=== PATIENT | male | born 1950 | race Caucasian/White ===

== ENCOUNTER 2022-03-11 10:00 | Emergency (ER) | payer MEDICARE, MEDICAID ==
[~2022-03-11] VITALS: Ht 170.2 cm; Wt 82.7 kg
[2022-03-11 11:00] LABS: CLARITY,URINE CLOUDY (Clear); COLOR,URINE YELLOW (Yellow); GLUCOSE, URINE NEGATIVE (Neg); KETONES,URINE NEGATIVE (Neg); LEUKOCYTE ESTERASE ,URINE MODERATE (Neg); NITRITES, URINE NEGATIVE (Neg); OCCULT BLOOD,URINE LARGE (Neg); PH,URINE 6.5 (4.8-8.0); PROTEIN,URINE NEGATIVE (Neg); UROBILINOGEN,URINE 0.2 E.U/dL (0.2-1.0)
[2022-03-11 12:20] LABS: UA COLLECTION TYPE NON-SPECIFIED
[2022-03-11 12:21] LABS: RBC,URINE 50-100 /HPF (0-2)
[2022-03-11 12:22] LABS: BACTERIA,URINE FEW /HPF (Neg); SQUAMOUS EPITHELIAL CELL,UR FEW /LPF (FEW); TRANSITIONAL EPI CELLS,URINE FEW /HPF
[2022-03-11] MEDS ORDERED: ciprofloxacin 250mg tablet PO ONE (13:00)
[2022-03-11] MEDS ORDERED: CIPR-260 PO (13:11)
[2022-03-11 13:45] VITALS: BP 117/76
--- NOTE | 2022-03-11 13:50 | NUR ---
Pt given and understands d/c instructions. Ambulatory with a steady gait.
== END 2022-03-11 13:50 | disposition home or self-care (01) ==
LOC: ER 10:01
DX: N30.91 Cystitis, unspecified with hematuria (principal); N40.0 Benign prostatic hyperplasia without lower urinary tract symptoms; E11.9 Type 2 diabetes mellitus without complications; Z87.891 Personal history of nicotine dependence
CPT/HCPCS: 81001; 87088; 99283

== ENCOUNTER 2025-04-28 08:36 | Emergency (ER) | payer MEDICARE, MEDICAID ==
[~2025-04-28] VITALS: Ht 170.2 cm; Wt 72.1 kg
[~2025-04-28 08:36] MED LIST: CIPR-260 PO; PRED20TA PO
[2025-04-28 08:43] VITALS: BP 107/64; PULSE 50; TEMP 98.8; O2SAT 100
[2025-04-28 08:49] VITALS: RESP 16
--- NOTE | 2025-04-28 09:11 | Physician Documentation ---
History of Present Illness ~ Chief Complaint: Groin Pain Stated Complaint: HERNIA Time Seen by MD: 09:02 Mode of Arrival: POV HPI Patient is seen today with complaints of burning pain and a mass in his left groin that started a few days ago while he was on a walk. Patient states the mass does reduce when he lays flat. Patient states the mass is tender while in his protruding. Patient denies any nausea, vomiting, diarrhea, fevers, chills, chest pain, shortness of breath or abdominal pain. Patient has no other concern or complaint at this time. He denies any history of hernia or inguinal hernia. Medication Reconciliation Allergies: Coded Allergies: No Known Allergies (Unverified , 03/11/22) Scheduled Ciprofloxacin HCl (Cipro), 1 TAB PO Q12H Discontinued Medications Prednisone* (Prednisone*), 1 TAB PO Q12H Discontinued Reason: Auto Discontinued Past Medical History Past Medical History: BPH, Diabetes Past Surgical History: no surgical history Drug Use: none Lives In: Home Review of Systems Constitutional: Denies: chills, fever, weakness Eyes: Denies: pain, blurred vision ENT: Denies: ear pain, nose pain, throat pain, mouth pain Respiratory: Denies: cough, shortness of breath Cardiovascular: Denies: chest pain, palpitations Gastrointestinal: Denies: abdominal pain, nausea, vomiting Genitourinary: Denies: burning, dysuria Male Genitalia: Denies: penile discharge, testicular pain Neurological: Denies: headache, dizziness Musculoskeletal: Denies: pain, swelling Integumentary: Denies: rash, lesions Allergic/Immunologic: Denies: hives, itching Hematologic/Lymphatic: Denies: no symptoms reported Psychiatric: Denies: depression, anxiety Physical Exam Vital Signs: Temperature: 98.8, Source: Oral, Heart Rate: 50, Respiratory Rate: 16, BP: 107/64, Pulse Oximetry: 100, Weight: 72.100 Oxygen Flow Rate: 0 Physical Exam General: Awake and Alert, no acute distress. HEENT: Conjunctiva pink, Sclera clear, Mucus Membranes moist. Neck: Supple without masses and tenderness. Resp: Unlabored. Lungs clear to auscultation bilaterally. Heart: Regular Rate and rhythm, normal S1 and S2 without murmur, rub or gallop. Groin/: Patient on exam does have reducible left-sided inguinal hernia. The area is tender to palpation but reduces readily. Abdomen: Soft and non tender no organomegaly. Extremities: No cyanosis,clubbing or edema. Skin: Warm and Dry. Progress Results/Orders Results/Orders Vital Signs 04/28/25 04/28/25 08:43 08:49 Temp 98.8 Pulse 50 Resp 16 16 B/P (MAP) 107/64 Pulse Ox 100 O2 Flow Rate 0 Medical Decision Making Findings Patient is seen today with complaints of burning pain and a mass in his left groin that started a few days ago while he was on a walk. Patient states the mass does reduce when he lays flat. Patient states the mass is tender while in his protruding. Patient denies any nausea, vomiting, diarrhea, fevers, chills, chest pain, shortness of breath or abdominal pain. Patient has no other concern or complaint at this time. He denies any history of hernia or inguinal hernia. Shared decision-making utilized with the patient today. Patient did agree to follow up with primary care and get a referral to a general surgeon for further eval and treatment of his reducible left-sided inguinal hernia. Patient will return to ED with any worsening, concerning or changing symptoms or fever or chills or abdominal pain. Departure Disposition: 01 HOME / SELF CARE / HOMELESS Impression: Primary Impression: Left inguinal hernia Condition: Stable Discharge Instructions: Hernia Additional Instructions: Shared decision-making utilized with the patient today. Patient did agree to follow up with primary care and get a referral to a general surgeon for further eval and treatment of his reducible left-sided inguinal hernia. Patient will return to ED with any worsening, concerning or changing symptoms or fever or chills or abdominal pain. Referrals: NO PRIMARY CARE PROVIDER (PCP) Signature Scribe Signature: No scribe Attestation: No scribe FREDY CORREA April 28, 2025 09:11
== END 2025-04-28 09:40 | disposition home or self-care (01) ==
LOC: ER 08:37
DX: K40.90 Unilateral inguinal hernia, without obstruction or gangrene, not specified as recurrent (principal); E11.9 Type 2 diabetes mellitus without complications
CPT/HCPCS: 99281

== ENCOUNTER 2025-09-01 09:58 | Emergency (ER) | payer MEDICARE, MEDICAID ==
[~2025-09-01] VITALS: Ht 167.6 cm; Wt 76.4 kg
[~2025-09-01 09:58] MED LIST changes: +ASPI81TA53 PO; -CIPR-260 PO; +HYDR-3972 PO; +LEVO137T2 PO; +LOP12.5T PO; -PRED20TA PO; +TRAM50TA2 PO
[2025-09-01 10:03] VITALS: TEMP 97.6
--- NOTE | 2025-09-01 10:36 | Physician Documentation ---
History of Present Illness ~ Chief Complaint: Blurred Vision Stated Complaint: BLURRY VISION X2 NIGHTS AGO Time Seen by MD: 11:32 Primary Medical Doctor: ping MCDANIEL Is a 75-year-old male that presents to the emergency department for evaluation of blurred vision and abnormal eye movement x2 days ago. Reports that the event lasted for approximately 2 minutes and resolved completely. Patient denies any symptoms at this time. Patient reports family told him that he should have presented 2 days ago and now today is coming in for evaluation due to his concern of having had a TIA. Patient has a history of recent valve replacement and does not take any blood thinners at this time. Denies any other symptoms at this time. Medication Reconciliation Allergies: Coded Allergies: No Known Allergies (Unverified , 09/01/25) Scheduled Aspirin (Children's Aspirin), 81 MG PO Q24H@0830 Levothyroxine Sodium (Levothyroxine Sodium), 1 TAB PO QAM, (Reported) Metoprolol Tartrate (Lopressor tablet), 12.5 MG PO BID Scheduled PRN Hydrocodone Bit/Acetaminophen (Hydrocodon-Acetaminophn 10-325 tablet), 1 TAB PO Q6H PRN for MODERATE PAIN 4-6 Tramadol Hcl (Tramadol Hcl), 1 TAB PO DAILY PRN for pain, (Reported) Past Medical History Past Medical History: BPH, Diabetes Past Surgical History: no surgical history Patient History: Oxygen Dependent Smoking Drug Use: none Lives In: Home Review of Systems ROS As mentioned in [place]. Physical Exam Vital Signs: Temperature: 97.6, Source: Temporal, Heart Rate: 51, Respiratory Rate: 16, BP: 109/62, Pulse Oximetry: 99, Weight: 76.400 Oxygen Flow Rate: 0 Physical Exam Reviewed vital signs and they are all well within normal limit . Patient told me that his base line BP is low normal. general appearance : not in any distress. Head : atraumatic HEENT : NAD normal symmetry of the face NECK : supple Respiratory : unlabored breathing and CTA CVS : S1 S2 and regular Abdomen : nontender Neurology : , negative for BFAST no focal neurological deficit. Progress Results/Orders Results/Orders Orders - NANCY SIN MD Electrocardiogram (09/01/25 11:32) Lolita Prov.Neuro Consult (09/01/25 11:32) Cta Neck/Head (09/01/25 11:32) Ct Head (09/01/25 ) Completed Orders - OHNANCY Marcus MD Electrocardiogram (09/01/25 11:32) Cbc/Diff (09/01/25 11:32) BMP (09/01/25 11:32) Pt Inr (09/01/25 11:32) PTT (09/01/25 11:32) Liver Panel (09/01/25 11:32) Cta Neck/Head (09/01/25 11:32) Ct Head (09/01/25 ) Iohexol 350mg/Ml 100ml (Omnipaque 350mg/ (09/01/25 12:23) Normal Saline 1000ml (0.9% Sodium Chlori (09/01/25 12:30) Aspirin 81mg, Enteric-Coated (Ecotrin Ta (09/01/25 13:55) Laboratory Tests Test 09/01/25 11:48 White Blood Count 4.4 L Red Blood Count 4.57 L Hemoglobin 12.1 L Hematocrit 36.6 L Mean Corpuscular Volume 79.9 Mean Corpuscular Hemoglobin 26.5 L Mean Corpuscular Hemoglobin Concent 33.2 Red Cell Distribution Width 17.3 H Platelet Count 237 Mean Platelet Volume 7.7 Neutrophils (%) (Auto) 62.8 Lymphocytes (%) (Auto) 21.4 Monocytes (%) (Auto) 12.1 H Eosinophils (%) (Auto) 1.5 Basophils (%) (Auto) 2.2 H Neutrophils # (Auto) 2.8 Lymphocytes # (Auto) 0.9 L Monocytes # (Auto) 0.5 Eosinophils # (Auto) 0.1 Basophils # (Auto) 0.1 CBC Comment Prothrombin Time 11.7 INR International Normalized Ratio 1.2 Activated Partial Thromboplast Time 29 Coagulation Comments Sodium Level 142 Potassium Level 4.0 Chloride Level 105 Carbon Dioxide Level 29.6 Anion Gap 7 L Blood Urea Nitrogen 18 Creatinine 0.90 Estimated GFR/1.73 m2 83 BUN/Creatinine Ratio 20.0 Glucose Level 95 Calcium Level 8.9 Total Bilirubin 0.3 Direct Bilirubin 0.1 Aspartate Amino Transf (AST/SGOT) 20 Alanine Aminotransferase (ALT/SGPT) 20 Alkaline Phosphatase 72 Total Protein 7.2 Albumin 3.8 Globulin 3.4 Albumin/Globulin Ratio 1.1 Chemistry Comments Medical Decision Making Findings The patient odes not have any neurological deficit. he has no arrhythmia . The [facility] teleneurology consult was done and I have spoken with the neurologist and we will put him on a baby aspirin for the time being and patient will have further stroke work up including MRI shall be done as as out patient. patient is discharged with clear instructions for follow up and return. Departure Disposition: 01 HOME / SELF CARE / HOMELESS Impression: Primary Impression: TIA (transient ischemic attack) Condition: Stable Discharge Instructions: Blurred Vision, Adult Additional Instructions: Thank you for coming to our Emergency Department today. Please do outpatient MRI of the brain with your physician. Please take one coated baby aspirin a day. Please ask your nurse or provider if you have questions about your care today and do not leave until all your questions have been answered. Please use any medications given as directed and follow-up with your doctor (or the doctor you were referred to) in the next 1-3 days. Your primary care doctor can help to coordinate outpatient specialty care and provide authorization for specialty referral as needed. If you do not have a primary care doctor you may follow up at a [facility] facility. You may also use motrin and tylenol as needed for fever and/or pain unless instructed otherwise by your provider or nurse. Indications for more urgent follow-up have been discussed, but you may return to the Emergency Department at ANY time for any worrisome or worsening symptoms. [facility] Facilities: [facility] Facilities: [facility]: [facility] [place] Address:[address] [place] [address] [facility]: [place] Address:[address] [place] [id number] [facility]: [facility] Address:[address] [place] [address] [facility] Address:[address] [place] [address] Registration Billing Pharmacy Referrals [facility] Address:[address] [place] [address] Referrals: NO PRIMARY CARE PROVIDER (PCP) Education Educated: Patient Educated regarding: diagnosis, treatment, need for follow up Signature Scribe Signature: x Attestation: ROGER Aguilar Sep 01, 2025 10:36 NANCY SIN MD Sep 01, 2025 13:55
[2025-09-01 12:00] LABS: MEAN PLATELET VOLUME 7.7 FL (7.4-10.4); RED CELL DISTRIBUTION WIDTH 17.3 % (11.5-14.5)
--- NOTE | 2025-09-01 12:06 | ELECTROCARDIOGRAPH REPORT ---
[facility] Test Date: 2025-09-01 Test Time: 12:03:46 Pat Name: MARIANA SANCHEZ Department: [facility] Patient ID: [id number] Room: Gender: M Sewer Head: : 1950 Requested By: NANCY SIN Order Number: [id number] Reading MD: Dr. Ronny Cardoza Measurements Intervals [place] Rate: 44 P: 64 UT: 261 QRS: 67 QRSD: 95 T: 64 QT: 447 QTc: 383 Interpretive Statements Sinus bradycardia Prolonged UT interval Electronically Signed On 09-01-2025 21:39:[address] Ronny Cardoza Please click the below link to view image of tracing.
[2025-09-01 12:09] LABS: APTT 29 SECONDS (22-32); CREATININE 0.90 MG/DL (0.60-1.10); INR 1.2 INR; TOTAL CARBON DIOXIDE 29.6 MMOL/L (24-32); eCRCL 66 ML/MIN; eGFR 83 ML/MIN
[2025-09-01] MEDS: normal saline 1000ml 1,000 ML IV ONE (12:49)
--- NOTE | 2025-09-01 12:55 | RADIOLOGY REPORT ---
CT CT HEAD INDICATION: Blurred vision two nights ago COMPARISON: CT CTA NECK/HEAD on DOS: 09/01/25, CT CT FACIAL BONES/SOFT TISSUE on DOS: 05/10/25, CT CT CERVICAL SPINE on DOS: 05/10/25, CT CT HEAD on DOS: 05/10/25 TECHNIQUE: CT of the head without intravenous contrast. RADIATION DOSE: CTDIvol: 64 mGy, DLP: 1140 mGy*cm FINDINGS: There is no evidence of acute intracranial hemorrhage, extra-axial collection, mass effect, midline shift, herniation or hydrocephalus. The ventricles, sulci and cisterns are age appropriate. The noble-white differentiation is intact. The visualized paranasal sinuses and mastoid air cells are clear. The surrounding soft tissues and osseous structures are unremarkable. IMPRESSION: 1. No evidence of acute intracranial hemorrhage, mass effect or hydrocephalus.
--- NOTE | 2025-09-01 13:36 | RADIOLOGY REPORT ---
Procedure: CT CTA NECK/HEAD HISTORY: Blurred vision two nights ago Comparison Study: CT CT HEAD on DOS: 09/01/25, VASC VL CAROTID on DOS: 05/10/25, CT CT FACIAL BONES/SOFT TISSUE on DOS: 05/10/25, CT CT CERVICAL SPINE on DOS: 05/10/25, CT CT HEAD on DOS: 05/10/25 Exam Date:09/01/2025 12:35 PM TECHNIQUE: CTA head without and with intravenous contrast. CTA neck with intravenous contrast. 3D image postprocessing was performed and images were used for interpretation and reporting. Radiation Dose : CT Dose: CTDI volume is 25 mGy. Dose-length product is 250 mGy*cm FINDINGS: CTA head: There is normal enhancement of the visualized distal internal carotid, anterior and middle cerebral arteries. There is a normal anterior communicating artery complex. There are bilateral posterior communicating arteries. The vertebral, basilar, cerebellar and posterior cerebral arteries are within normal limits. The early parenchymal enhancement is grossly unremarkable. The visualized intracranial venous structures are grossly unremarkable. CTA neck: The visualized thoracic aortic arch and proximal great vessels are unremarkable. The left common, internal and external carotid arteries are within normal limits. The right common, internal and external carotid arteries are within normal limits. The cervical segments of the right and left vertebral arteries are within normal limits. The limited visualized lung apices are clear. The surrounding soft tissues and osseous structures are otherwise unremarkable. IMPRESSION: No evidence of hemodynamically significant intracranial stenosis, proximal occlusion or aneurysm. No evidence of hemodynamically significant cervical stenosis or dissection. CAROTID STENOSIS REFERENCE Distal internal carotid artery diameter as the denominator for stenosis measurement: MILD = <50% stenosis. MODERATE = 50-69% stenosis. SEVERE = 70-89% stenosis. CRITICAL = 90-99% stenosis. OCCLUDED = 100% stenosis. All CT scans at this medical facility are performed using dose modulation techniques as appropriate to a performed exam including the following: Automated exposure control was utilized; adjustment of the MA and/or KV according to patient size; and use of iterative reconstruction technique.
[2025-09-01] MEDS: aspirin 81mg, enteric-coated 1 TAB TABLET.DR PO ONE (14:25)
[2025-09-01 14:27] VITALS: BP 121/67; PULSE 50; RESP 16; O2SAT 99
--- NOTE | 2025-09-01 15:26 | CONSULTATION REPORT ---
History of Present Illness Providers to CC ~ Refering MD: ping Allergies: Coded Allergies: No Known Allergies (Unverified , 09/01/25) Home Medications Home Medications Active Hydrocodon-Acetaminophn 10-325 tablet (Acetaminophen/Hydrocodone Bitart) 10mg- 325mg Tablet 1 Tab PO Q6H PRN Children's Aspirin (Aspirin) 81 Mg Tab.chew 81 Mg PO Q24H@0830 Lopressor tablet (Metoprolol Tartrate) 25 Mg Tablet 12.5 Mg PO BID Hold for Heart Rate below 60. Reported Tramadol Hcl (Tramadol HCl) 50 Mg Tablet 1 Tab PO DAILY PRN Levothyroxine Sodium 137 Mcg Tablet 1 Tab PO QAM Past Family History Family History: Oxygen Dependent Smoking Physical Exam Last Vital Signs Recorded: Temperature: 97.6, Source: Temporal, Heart Rate: 50, Respiratory Rate: 16, BP: 121/67, Pulse Oximetry: 99, Weight: 76.400 Results Diagram Lab Result Diagram: 09/01/25 1148 09/01/25 1148 Assessment/Plan Additional Plan [facility] # Demographics Consult Type: Acute Stroke Level 2 (4.5-24 hrs) Patient Location: Emergency Room First Name: Александр Last Name: Abel Date of : 1950 Age: 75 Gender: Male Facility: [facility] Time of Initial Page (): 09/01/2025 11:43 First Contact with Site (): 09/01/2025 11:44 # HPI Chief Complaint: - vision changes History: 75 y/o M presents with question of TIA two nights ago. Was watching television when his head felt funny, he got double vision, then started feeling normal again after two minutes. Double vision did not change with closure of either eye. No prior similar symptoms. No provoking factor. No thinners recently. Sister told him he might have had a TIA and to come to the ER. # Scores Time of exam and NIHSS (): 09/01/2025 11:53 Level of Consciousness 1a: [0] = Alert; keenly responsive LOC Questions 1b: [0] = Answers both questions correctly LOC Commands 1c: [0] = Performs both tasks correctly Best Gaze 2: [0] = Normal Visual 3: [0] = No visual loss Facial Palsy 4: [0] = Normal symmetrical movements Motor Arm Left 5a: [0] = No drift Motor Arm Right 5b: [0] = No drift Motor Leg Left 6a: [0] = No drift Motor Leg Right 6b: [0] = No drift Limb Ataxia 7: [0] = Absent Sensory 8: [0] = Normal Best Language 9: [0] = No aphasia Dysarthria 10: [0] = Normal Extinction and Inattention 11: [0] = No abnormality NIHSS Total: 0 # Assessment Impression: - Other Possible TIA, though mimics also possible # Plan Thrombolytic/Intervention: NOT IV Thrombolysis or IA Intervention candidate Thrombolytic Exclusion (< 3 hour window): - non-disabling deficit Intraarterial Exclusion: - clinical exam not consistent with presence of large vessel occlusion (LVO), can reconsider if LVO found on vascular imaging Other: - If patient has any neurological deterioration please call me back immediately - I have discussed my recommendations with the referring provider Additional Recommendations: If CT/CTA negative then okay for outpatient follow-up for ECHO, MRI, fasting lipids. would start Aspirin 81mg daily. Please call if concerning changes on CT studies. # Logistics Attestation of consult completion: The patient is located at: [facility]. Facility staff participated in the visit. I performed this telemedicine visit from my offsite office utilizing interactive 2 way audio and visual telecommunication technology at the request of the onsite emergency room provider. Total time spent in telemedicine encounter: I spent 15 minutes reviewing clinical data and/or imaging, obtaining history, examining the patient, communicating with the onsite care team, and in preparation of this report. # Demographics First Name: Александр Last Name: Roman Facility: [facility] NICK ROBLES MD Sep 01, 2025 15:26
== END 2025-09-01 14:31 | disposition home or self-care (01) ==
LOC: ER 09:59
DX: G45.9 Transient cerebral ischemic attack, unspecified (principal); F17.200 Nicotine dependence, unspecified, uncomplicated; E11.9 Type 2 diabetes mellitus without complications; Z79.899 Other long term (current) drug therapy; Z79.82 Long term (current) use of aspirin
CPT/HCPCS: 70450; 70496; 70498; 80048; 80076; 85025; 85610; 85730; 93005; 96360; 96361; 99285; J7030; Q9967

== ENCOUNTER 2025-11-03 11:59 | Day surgery (SDC) | payer MEDICARE, MEDICAID ==
[2025-10-25 11:38] LABS: MEAN PLATELET VOLUME 7.3 FL (7.4-10.4); PRE OP HEMATOCRIT 37.8 % (42.0-52.0); PRE OP HEMOGLOBIN 12.6 g/dL (14.0-17.9); PRE OP PLATELET COUNT 220 X10'3 (140-440); PRE OP WHITE BLOOD COUNT 4.7 10'3 (4.8-10.8); RED CELL DISTRIBUTION WIDTH 17.2 % (11.5-14.5)
[2025-10-25 11:53] LABS: CREATININE 0.90 MG/DL (0.60-1.10); PRE OP ALT 21 U/L (30-65); PRE OP ANION GAP 6 (8-16); PRE OP AST 25 U/L (10-37); PRE OP BILIRUB, TOTAL 0.4 MG/DL (0.0-1.0); PRE OP GLUCOSE 113 MG/DL (70-104); PRE OP POTASSIUM 4.1 MMOL/L (3.4-5.1); PRE OP SODIUM 142 MMOL/L (135-145); TOTAL CARBON DIOXIDE 30.2 MMOL/L (24-32); eGFR 83 ML/MIN
[2025-11-03] VITALS (11 sets, daily range): BP systolic 117–141; BP diastolic 66–89; PULSE 54–86; RESP 12–20; TEMP 97.5; O2SAT 95–99
[~2025-11-03] VITALS: Ht 167.6 cm; Wt 76.4 kg
[2025-11-03] MEDS: ceFAZolin 2gm/dext,iso 50mL 50 ML IV ONE (05:30)
[~2025-11-03 11:59] MED LIST changes: +ASPI-1265 PO; -ASPI81TA53 PO; -HYDR-3972 PO; -LOP12.5T PO; -TRAM50TA2 PO
[2025-11-03] MEDS ORDERED: hydrALAZINE 20mg/ml inj. IV PRN (13:00)
[2025-11-03] MEDS ORDERED: ondansetron/PF 4mg/2ml inj IV PRN (13:00)
[2025-11-03] MEDS ORDERED: labetalol 20mg/4ml (5mg/ml) syringe IV PRN (13:00)
[2025-11-03] MEDS ORDERED: HYDROmorphone/PF 0.2 MG/ML SYRINGE IV PRN (13:00)
[2025-11-03] MEDS ORDERED: fentaNYL/PF 50MCG/1 ML 2ML syringe IV PRN (13:00)
[2025-11-03] MEDS ORDERED: ringers solution, lacted 1,000 ML IV SCH (13:00)
[2025-11-03] MEDS: ringers solution, lacted 1,000 ML IV SCH (13:02)
--- NOTE | 2025-11-03 14:07 | HISTORY AND PHYSICAL ---
History & Physical Providers to CC CC: BERRY RODNEY MD ~ History of Present Illness Reason for Admit\Complaint: Left inguinal hernia, umbilical hernia History of Present Illness Interval history and physical exam Patient here today for elective repair of his umbilical and left inguinal hernias He is also concerned about a possible right inguinal hernia He denies any change in his past medical history since he was seen in the office (please see previous history and physical exam for all pertinent details) He is scheduled for robotic assisted, laparoscopic mesh repair of the inguinal hernia and open repair of his umbilical hernia Allergies: Coded Allergies: No Known Allergies (Unverified , 09/01/25) Home Medications Home Medications Active Reported Aspirin 81 Mg Tab.chew 1 Tab PO DAILY Levothyroxine Sodium 137 Mcg Tablet 1 Tab PO QAM Family History Family History: Oxygen Dependent Smoking ROS ROS Reviewed and negative with the exception of symptomatic left and burning, suspected symptomatic right inguinal hernia Exam General: 75-year-old male in no acute distress Chest: Lungs clear to auscultation bilaterally Cardiovascular: Regular rate and rhythm without murmurs Abdomen: Soft and nondistended Reducible 1-2 cm umbilical hernia Left side of the abdomen marked with indelible ink correlating with planned left inguinal hernia repair Suspected right inguinal hernia with the associated right groin cough impulse Problems: (1) Umbilical hernia (2) Left inguinal hernia Status: Acute Additional Plan The risks, benefits, and alternatives to umbilical hernia repair as well as robotic assisted, laparoscopic left possible right inguinal hernia repair with mesh were discussed with the patient. Risks include, but are not limited to, bleeding, infection, injury to intra-abdominal structures, hernia recurrence and chronic postoperative pain. Patient verbalized understanding and wishes to proceed with surgery. We will do so today as scheduled. BERRY RODNEY MD Nov 03, 2025 14:07
[2025-11-03] MEDS ORDERED: BUPIVAcaine 2.5mg/ml inj 50ml vial (contains preservative) ONE (14:08)
[2025-11-03] MEDS ORDERED: LIDOcaine 1% 30ml preserv. free vial ONE (14:08)
[2025-11-03] MEDS ORDERED: BUPIVACAINE liposomal/PF 13.3 MG/ML 10mL vial IM ONE (14:09)
[2025-11-03] MEDS ORDERED: midazolam 1 mg/ML 2ml injection ONE (14:22)
[2025-11-03] MEDS ORDERED: fentaNYL/PF 50MCG/1 ML 2ML syringe ONE (14:22)
[2025-11-03] MEDS ORDERED: propofol inj 20 ML IV ONE (14:27)
[2025-11-03] MEDS ORDERED: glycopyrrolate 0.2mg/ml inj ONE (14:28)
[2025-11-03] MEDS ORDERED: rocuronium 10mg/ml inj IV ONE ×2 (14:28→14:45)
[2025-11-03] MEDS ORDERED: LIDOcaine 1%/PF 5ML 10 MG/ML VIAL ONE (14:28)
[2025-11-03] MEDS ORDERED: ondansetron/PF 4mg/2ml inj ONE (14:28)
[2025-11-03] MEDS ORDERED: dexamethasone sod phosphate 4mg/ml inj. ONE (14:35)
[2025-11-03] MEDS ORDERED: HYDROcodone/acetaminophen 5mg/325mg tablet PO PRN (16:20)
[2025-11-03] MEDS: fentaNYL/PF 50MCG/1 ML 2ML syringe IV PRN (16:28)
[2025-11-03] MEDS: acetaminophen 1,000mg/100ml IV 100 ML IV ONE (16:35)
--- NOTE | 2025-11-03 16:36 | OPERATIVE REPORT ---
Operative Report Providers to CC: LINDA RODNEY ~ Date of Procedure: Nov 03, 2025 Pre-Operative Diagnosis: Left inguinal hernia, umbilical hernia Post-Operative Diagnosis Bilateral inguinal hernias Umbilical hernia-1 cm Procedure Performed 1 cm umbilical hernia repair Robotic assisted, laparoscopic bilateral inguinal hernia repair with mesh Surgeon: Shabbir Rodney MD FACS Clinical Informatics Spec None Anesthesiologist: Faustino Gomez Type of Anesthesia: General Findings: 1 cm umbilical hernia Moderate-sized right inguinal hernia-indirect Very large left inguinal hernia-indirect Large amount of urine in the urinary bladder Wound class I Complications None Prosthetics\Implants used: Bilateral large inguinal hernia Dextile mesh Estimated Blood Loss: Minimal Specimen Removed: None Description of Procedure: Patient was brought to the operating room and identified by the nursing staff and the attending physician. Patient was placed supine and general anesthesia was induced. The patient's abdomen was prepped and draped in the standard sterile fashion. Preoperative antibiotics were given. Supraumbilical, midline incision was made to accommodate a 12 mm Suárez port. Small umbilical hernia sac was encountered. A subcentimeter umbilical hernia sac was mobilized away from the soft tissue down to the level of the fascia, excised and discarded. Defect was slightly lengthened to accommodate a 12 mm port for Suárez technique. Suárez technique was used to gain access into the abdomen and the port was anchored to the fascia with 0 Vicryl suture. Abdomen was insufflated without incident. Laparoscope was inserted and the pelvis examined. Patient was placed in Trendelenburg position. Secondary, 8.5 mm robotic trochars were then placed in the right lateral left lateral upper abdomen just above the umbilical line. These were placed under laparoscopic guidance. Local anesthetic was infiltrated prior to their insertion. The da Birdie robotic arm was docked to the patient. Instruments were guided intra-abdominally under laparoscopic visualization. Peritoneal rent was created starting at the left anterior superior iliac spine and carried across the anterior abdominal wall to the contralateral anterior superior iliac spine. The peritoneal flap was created and carried down to the symphysis pubis. Dissection was carried out bilaterally. On the right side, there was a moderate-sized indirect inguinal hernia. This was completely reduced. On the left side there was a very large indirect inguinal hernia. There was a loop of sigmoid colon within the hernia sac. This was somewhat adherent to the mouth of the hernia and did not reduced. Bowel ultimately reduced when the hernia sac was completely mobilized out of the indirect space and away from the cord structures. Peritoneum was dissected away from the cord structures and out laterally to accommodate 2 separate pieces of large Dextile mesh. Bilateral critical views of the myopectineal orifice were obtained. Mesh and suture was passed into the abdomen. Bilateral mesh was placed covering potential obturator, femoral, direct, and indirect hernia spaces. Mesh was anchored at Matt's ligament, rectus muscle in the midline, and out laterally just anterior to the anterior superior iliac spine. Mesh laid without wrinkles or folds. Peritoneal rent was then reapproximated with running, absorbable 2/0 V-lock suture. [place] were retrieved. Abdomen was allowed to desufflate after instruments removed and da Birdie robotic arm undocked from the patient. Umbilical port was removed as were the secondary trochars. The fascia at the umbilical port site was closed with a combination of 0 Ethibond and 0 Vicryl sutures, thus repairing the small umbi lical hernia defect. Skin was closed at all sites with 4-0 Monocryl sutures in a subcuticular fashion. Sterile dressings were applied. Patient was awakened and taken to the postanesthesia care unit in stable condition. Counts repoted as correct: Yes SHABBIR RODNEY MD Nov 03, 2025 16:36
[2025-11-03] MEDS: HYDROmorphone/PF 0.2 MG/ML SYRINGE IV PRN (16:39)
[2025-11-03] MEDS ORDERED: HYDROmorphone inj. 0.5 MG/0.5 ML DISP.SYRIN IV PRN ×2 (16:39)
[2025-11-03] MEDS: LidoCAINE 2% Topical Jelly 11mL syringe (UROJET) TOP ONE (16:57)
== END 2025-11-03 17:21 | disposition home or self-care (01) ==
LOC: PAS 11:59
PROVIDERS: ATTEND Surgery
DX: K40.20 Bilateral inguinal hernia, without obstruction or gangrene, not specified as recurrent (principal); K42.9 Umbilical hernia without obstruction or gangrene; Z87.891 Personal history of nicotine dependence; Z86.73 Personal history of transient ischemic attack (TIA), and cerebral infarction without residual deficits; Z79.82 Long term (current) use of aspirin; Z79.890 Hormone replacement therapy
CPT/HCPCS: 36415; 49591; 49650; 80053; 82948; 85025; A4215; A4618; C1781; J0131; J1100; J1171; J2003; J2250; J2405; J2704; J2710; J3010; J3490; J7030; J7120; Z7506; Z7508; Z7512; Z7610; A4314; J0666